=== PATIENT | male | born 1980 | race Caucasian/White ===

== ENCOUNTER 2021-08-06 03:23 | Emergency (ER) | payer SELFPAY ==
[~2021-08-06] VITALS: Ht 165.1 cm; Wt 90.9 kg
[2021-08-06 03:26] VITALS: BP 118/72
[2021-08-06] MEDS ORDERED: METO25TA3 PO (03:28)
== END 2021-08-06 05:15 | disposition left against medical advice (07) ==
LOC: EMS 03:30
DX: M79.602 Pain in left arm (principal); Z53.21 Procedure and treatment not carried out due to patient leaving prior to being seen by health care provider

== ENCOUNTER 2022-11-25 13:23 | Emergency (ER) | payer SELFPAY ==
[~2022-11-25] VITALS: Ht 167.6 cm; Wt 95.5 kg
[~2022-11-25 13:23] MED LIST: METO25TA3 PO
[2022-11-25 13:37] VITALS: BP 122/90
== END 2022-11-25 15:20 | disposition home or self-care (01) ==
LOC: EMS 13:34
DX: R45.851 Suicidal ideations (principal); F69 Unspecified disorder of adult personality and behavior; I10 Essential (primary) hypertension; F15.90 Other stimulant use, unspecified, uncomplicated
CPT/HCPCS: 99285; Z7502

== ENCOUNTER 2023-06-17 01:31 | Inpatient (IN) | payer MEDICAID ==
[~2023-06-17] VITALS: Ht 170.2 cm; Wt 100.0 kg
[2023-06-17] MEDS ORDERED: ACETAMINOPHEN 325 MG TABLET PO ONE (02:15)
[2023-06-17 02:23] LABS: COVID AG,FIA SOURCE NASAL SWAB
[2023-06-17 02:41] LABS: INFLUENZA TYPE A NEGATIVE FOR TYPE A (NEGATIVE); INFLUENZA TYPE B NEGATIVE FOR TYPE B (NEGATIVE)
[2023-06-17 02:58] LABS: SARS-COV2 (COVID) ANTIGEN,FIA Positive (Negative)
[2023-06-17] MEDS ORDERED: 0.9% SODIUM CHLORIDE 10 ML SYRINGE IVP PRN (03:15)
[2023-06-17] MEDS ORDERED: DEXAMETHASONE SOD PHOS 4 MG/ML 5 ML VIAL IVP ONE (03:15)
[2023-06-17 04:22] LABS: D-DIMER 1.55 mg/L FEU (0.00-0.50); PROTHROMBIN TIME 10.6 SEC (9.4-11.6)
[2023-06-17 04:27] LABS: LACTIC ACID 0.7 mmol/L (0.4-2.0)
[2023-06-17 04:28] LABS: BASOPHILS % (AUTO) 0.5 % (0.0-2.0); EOSINOPHILS % (AUTO) 0.6 % (1.0-6.0); HEMATOCRIT 48.8 % (41-53); HEMOGLOBIN 16.8 g/dL (13.5-17.5); LYMPHOCYTES # (AUTO) 0.5 K/uL (1.0-4.8); MEAN CORPUSCULAR HGB CONC 34.5 G/dL (31.0-37.0); MEAN CORPUSCULAR VOLUME 87 fL (80-100); MONOCYTES # (AUTO) 0.8 K/uL (0.1-1.0); MONOCYTES % (AUTO) 8.8 % (2.0-9.0); NEUTROPHILS # (AUTO) 7.4 K/uL (1.8-7.7); NEUTROPHILS % (AUTO) 84.1 % (40.0-70.0); PLATELET COUNT (AUTO) 141 K/uL (150-450); RED BLOOD CELL COUNT(AUTO) 5.61 MIL/uL (4.50-5.90); RED CELL DISTRIBUTION WIDTH 13.5 % (11.5-14.5); WHITE BLOOD COUNT (AUTO) 8.8 K/uL (4.5-11.0)
[2023-06-17] MEDS ORDERED: ONDANSETRON HCL 4 MG/2 ML VIAL IVP ONE (04:30)
[2023-06-17] MEDS ORDERED: KETOROLAC TROMETHAMINE 30 MG/ML VIAL IVP ONE (04:30)
[2023-06-17 04:33] LABS: ANION GAP 7 mmol/L (8-16); CALCIUM, TOTAL 8.7 mg/dL (8.8-10.5); CARBON DIOXIDE 24 mmol/L (22-29); CHLORIDE 101 mmol/L (98-107); CREATININE 0.99 mg/dL (0.60-1.30); GLOMERULAR FILTR. RATE CALC > 60 mL/min (>60); GLUCOSE,RANDOM 295 mg/dL (70-110); POTASSIUM 4.3 mmol/L (3.5-5.1); SODIUM SERUM 132 mmol/L (136-145); UREA NITROGEN, BLOOD 13 mg/dL (7-18)
[2023-06-17 04:37] LABS: ALANINE AMINOTRANSFERASE 81 U/L (12-78); ALBUMIN 3.5 g/dL (3.4-5.0); ALKALINE PHOSPHATASE 96 U/L (46-116); ASPARTATE AMINOTRANSFERASE 59 U/L (15-37); BILIRUBIN,TOTAL 0.3 mg/dL (0.1-1.0); TOTAL PROTEIN, SERUM 7.4 g/dL (6.4-8.2)
[2023-06-17] MEDS ORDERED: ACETAMINOPHEN 325 MG TABLET PO PRN ×2 (05:00→05:45)
[2023-06-17] MEDS ORDERED: ONDANSETRON HCL 4 MG/2 ML VIAL IVP PRN ×2 (05:00→05:45)
[2023-06-17] MEDS ORDERED: ALBUTEROL SULFATE 2.5 MG/0.5 ML NEB SOLUTION NEB PRN (05:45)
[2023-06-17] MEDS ORDERED: IPRATROPIUM BROMIDE 0.5 MG/2.5 ML NEB SOLUTION NEB PRN (05:45)
[2023-06-17] MEDS ORDERED: DEXTROSE 50%-WATER 25 GM/50 ML SYRINGE IVP PRN (06:00)
[2023-06-17] MEDS ORDERED: INSULIN LISPRO 100 UNITS/ML SQ PRN (06:00)
[2023-06-17] MEDS ORDERED: SODIUM CHLORIDE 0.9% 100 ML ONE (07:40)
[2023-06-17] MEDS ORDERED: IOHEXOL 350 MG/ML 100 ML VIAL ONE (07:40)
[2023-06-17] MEDS ORDERED: HEPARIN SODIUM,PORCINE 5,000 UNITS/ML VIAL SQ SCH (08:00)
[2023-06-17 12:01] LABS: GLUCOMETER DEV NAME(LOC) ER.6; GLUCOSE,POINT OF CARE 353 MG/DL (70-110)
[2023-06-17] MEDS ORDERED: INFLUENZA VIRUS VACCINE QVS 2023-24 (6MO+)/PF 60 MCG/0.5 ML SYRINGE IM. ONE (13:30)
[2023-06-17] MEDS ORDERED: PNEUMOCOCCAL VACCINE POLYVALENT 0.5 ML SYRINGE [PPSV23] IM. ONE (13:30)
[2023-06-17 14:21] VITALS: BP 131/78; PULSE 83; RESP 18; TEMP 98
[2023-06-17] MEDS ORDERED: INSULIN GLARGINE,HUM.REC.ANLOG 100 UNITS/ML SQ SCH (21:00)
== END 2023-06-17 15:03 | disposition left against medical advice (07) | DRG 720 ==
LOC: EMS 01:32 → AHU 06:08 → 6N 11:54
PROVIDERS: ADMIT Internal Medicine; ATTEND Internal Medicine
DX: A41.89 Other specified sepsis (principal); J12.82 Pneumonia due to coronavirus disease 2019; D69.6 Thrombocytopenia, unspecified; U07.1 COVID-19; E66.9 Obesity, unspecified; I10 Essential (primary) hypertension; E11.65 Type 2 diabetes mellitus with hyperglycemia; R74.01 Elevation of levels of liver transaminase levels; Z53.29 Procedure and treatment not carried out because of patient's decision for other reasons; Z68.34 Body mass index [BMI] 34.0-34.9, adult
CPT/HCPCS: 71045; 80053; 82962; 83605; 84145; 85025; 85379; 85384; 85610; 87040; 87804; 93005; 99291; J1100; J1644; J1815; J1885; J2405; J7050; Q9967; 36415-L1; 36415-TC